=== PATIENT | male | born 1970 | race Caucasian/White ===

== ENCOUNTER 2016-12-12 18:06 | Emergency (ER) | payer MEDICARE, MEDICAID ==
[~2016-12-12] VITALS: Ht 167.6 cm; Wt 90.7 kg
--- NOTE | 2016-12-12 18:10 | NUR ---
Patient states he thinks he took about 800mg of trazadone and "maybe a few escitalopram" because he is having suicidal thoughts. He brought his medication bottles with him. i labeled it and am keeping it away from him, at the nurses station. he is on a can crimper. i called nursing fitting supervisor Bear for a sitter for constant observation.
[2016-12-12] MEDS ORDERED: CARV3.122 PO (18:32)
[2016-12-12] MEDS ORDERED: ATOR20TA PO (18:33)
[2016-12-12] MEDS ORDERED: PANT40TA4 PO (18:33)
[2016-12-12] MEDS ORDERED: ESCI20TA PO (18:34)
[2016-12-12] MEDS ORDERED: TRAZ-147 PO (18:34)
--- NOTE | 2016-12-12 18:58 | NUR ---
PT IS IN ROOM #2A UNDER DIRECT SUPERVISION OF ULISSES HORNE. PT IS RESTING IN BED COMFORTABLY , NO S/S OF ACUTE DISTRESS AT THIS TIME.
--- NOTE | 2016-12-12 19:00 | NUR ---
REPORT WAS GIVEN TO ULISSES ANDRADE.
--- NOTE | 2016-12-12 19:24 | NUR ---
sitter at bedside for constant observation. belongings away from patient
[2016-12-12 19:25] LABS: BASOPHILS # (AUTO) 0.1 K/uL (0.0-0.2); EOSINOPHILS % (AUTO) 0.7 % (0.0-7.0); HEMATOCRIT 41.9 % (40.0-50.0); LYMPHOCYTES # (AUTO) 1.9 K/uL (0.8-4.8); LYMPHOCYTES % (AUTO) 28.1 % (20.5-51.5); MEAN CORPUSCULAR HEMOGLOBIN 26.5 uug (27.0-31.0); MEAN CORPUSCULAR HGB CONC 34 g/dL (32.0-37.0); MONOCYTES # (AUTO) 0.7 K/uL (0.1-1.30); MONOCYTES % (AUTO) 10.4 % (0.0-11.0); NEUTROPHILS % (AUTO) 59.8 % (38.5-71.5); PLATELET COUNT (AUTO) 377 K/uL (150-450); RED BLOOD CELL COUNT(AUTO) 5.31 MIL/uL (4.70-6.10); RED CELL DISTRIBUTION WIDTH 21.3 % (11.5-14.5); WHITE BLOOD COUNT (AUTO) 6.7 K/uL (4.0-11.2)
--- NOTE | 2016-12-12 19:30 | NUR ---
Patient moved to room 4A for house convenience.
[2016-12-12 19:37] LABS: ALANINE AMINOTRANSFERASE 35 U/L (16-63); ALBUMIN 3.8 g/dL (3.4-5.0); ALKALINE PHOSPHATASE 108 U/L (50-136); ASPARTATE AMINOTRANSFERASE 33 U/L (15-37); BILIRUBIN,DIRECT 0.2 mg/dL (0.0-0.2); BILIRUBIN,TOTAL 0.9 mg/dL (0.2-1.0); CALCIUM 8.9 mg/dL (8.5-10.1); CHLORIDE 99 mmol/L (98-107); CREATININE 1.2 mg/dL (0.6-1.3); ETHANOL 100 MG/DL (0-0); GFR 65 mL/min (>60); GLUCOSE 100 mg/dL (74-106); POTASSIUM 3.7 mmol/L (3.5-5.1); SODIUM SERUM 137 mmol/L (136-145); TOTAL PROTEIN, SERUM 8.1 g/dL (6.4-8.2); UREA NITROGEN, BLOOD 16 mg/dL (7-18)
[2016-12-12 19:38] LABS: ACETAMINOPHEN < 2.0 ug/mL (10-30); CARBON DIOXIDE 20 mmol/L (21-32)
[2016-12-12 19:40] LABS: *BILIRUBIN,URIN NEGATIVE (NEGATIVE); *BLOOD, URINE NEGATIVE (NEGATIVE); *CLARITY,URINE CLEAR (CLEAR); *COLOR,URINE YELLOW (YELLOW); *KETONES,URINE NEGATIVE (NEGATIVE); *PROTEIN,URINE 1+ (NEGATIVE); *UROBILINOGEN,URINE 0.2 E.U./dl (NORMAL); LEUKOCYTE ESTERASE ,URINE NEGATIVE (NEGATIVE); NITRITE, URINE NEGATIVE (NEGATIVE); UGLUCOSE NEGATIVE (NEGATIVE)
[2016-12-12 19:54] LABS: *AMPHETAMINE, URINE NEGATIVE (NEGATIVE); *BARBITURATE, URINE NEGATIVE (NEGATIVE); *CANNABINOID, URINE NEGATIVE (NEGATIVE); *COCCAINE, URINE NEGATIVE (NEGATIVE); *OPIATE, URINE NEGATIVE (NEGATIVE); *PHENCYCLIDINE SCREEN,URINE NEGATIVE (NEGATIVE)
[2016-12-12 20:00] LABS: MUCUS,URINE MANY /LPF (0-FEW); SQUAMOUS EPITHELIAL CELL,UR FEW /HPF (NONE SEEN); WBC,URINE 0-3 /HPF (0-3)
[2016-12-12 20:01] LABS: ANISOCYTOSIS 2+
--- NOTE | 2016-12-12 20:01 | NUR ---
Call placed to [facility] for PET evaluation, ETA 40 min.
--- NOTE | 2016-12-12 21:27 | NUR ---
Juan Olive[facility] at bedside
--- NOTE | 2016-12-12 23:00 | NUR ---
Patient is resting comfortably in bed with eyes closed. 1:1 sitter at bedside for safety
--- NOTE | 2016-12-12 23:00 | NUR ---
Yael flaherty in [facility] - 12/13/16 at 0106 by ISELA Patient is resting comfortably in bed with eyes closed
--- NOTE | 2016-12-13 00:02 | NUR ---
Call placed to [facility] to check status. Psych intake at that location states that they did not receive any paperwork RE patient despite FAX CONFIRMATION AT [phone]. Information re-faxed.
--- NOTE | 2016-12-13 01:06 | NUR ---
Patient is resting comfortably in bed with eyes closed. 1:1 sitter at bedside for safety
--- NOTE | 2016-12-13 01:39 | NUR ---
Nursing Licensed Midwife contacted .[facility] to check status, facility unable to verify MEDICAL due to system maintenence.
--- NOTE | 2016-12-13 02:09 | NUR ---
Call received from [facility], patient accepted by Dr. Nichole. [facility] contacted for transportation, ETA 40 min.
--- NOTE | 2016-12-13 02:16 | NUR ---
SBAR report to Harjinder.
--- NOTE | 2016-12-13 02:40 | NUR ---
Patient discharged to [facility] in stable conditon via BLS AMBULANCE. Written and verbal after care instructions given. Patient verbalizes understanding of instructions.
== END 2016-12-13 02:41 | disposition home or self-care (01) ==
LOC: ER 18:06
DX: F32.9 Major depressive disorder, single episode, unspecified (principal); I10 Essential (primary) hypertension; K21.9 Gastro-esophageal reflux disease without esophagitis; E78.5 Hyperlipidemia, unspecified; F10.20 Alcohol dependence, uncomplicated
CPT/HCPCS: 36415; 71010; 80048; 80076; 80307; 81001; 85025; 93005; 99285; A4663; G0480; G0481; G0482; G6040-TC

== ENCOUNTER 2017-07-06 23:32 | Inpatient (IN) | payer MEDICARE, MEDICAID ==
[~2017-07-06] VITALS: Ht 170.2 cm; Wt 81.6 kg
[~2017-07-06 23:32] MED LIST: ATOR20TA PO; CARV3.122 PO; ESCI20TA PO; PANT40TA4 PO; TRAZ-147 PO
--- NOTE | 2017-07-06 23:58 | NUR ---
PATIENT WALKED INTO ER C/O SI WITH A PLAN TO OVERDOSE ON MEDICATION. PATIENT UPON ARRIVAL SLURRING SPEECH AT TIMES BUT DENIES DRINKING ETOH AND TAKING DRUGS. NO DISTRESS NOTED
[2017-07-07] MEDS ORDERED: ONDANSETRON 4 MG/2 ML VIAL IV ONE
[2017-07-07] MEDS ORDERED: ONDANSETRON 4 MG/2 ML VIAL ONE (00:16)
[2017-07-07 00:29] LABS: *BILIRUBIN,URIN NEGATIVE (NEGATIVE); *BLOOD, URINE Trace-intact (NEGATIVE); *CLARITY,URINE CLEAR (CLEAR); *COLOR,URINE YELLOW (YELLOW); *KETONES,URINE NEGATIVE (NEGATIVE); *PROTEIN,URINE NEGATIVE (NEGATIVE); *UROBILINOGEN,URINE 0.2 E.U./dl (NORMAL); LEUKOCYTE ESTERASE ,URINE NEGATIVE (NEGATIVE); NITRITE, URINE NEGATIVE (NEGATIVE); UGLUCOSE NEGATIVE (NEGATIVE)
[2017-07-07] MEDS ORDERED: IV NORMAL SALINE 1000 ML BAG IV ONE ×3 (00:30→01:00)
[2017-07-07 00:31] LABS: HEMOGLOBIN 14.1 G/DL (14.0-18.0)
[2017-07-07 00:39] LABS: ALKALINE PHOSPHATASE 91 U/L (50-136); ASPARTATE AMINOTRANSFERASE 24 U/L (15-37); BILIRUBIN,DIRECT 0.1 mg/dL (0.0-0.2); BILIRUBIN,TOTAL 0.9 mg/dL (0.2-1.0); CARBON DIOXIDE 17 mmol/L (21-32); CHLORIDE 101 mmol/L (98-107); GLUCOSE 112 mg/dL (74-106); LIPASE 98 U/L (73-393); TOTAL PROTEIN, SERUM 8.1 g/dL (6.4-8.2); UREA NITROGEN, BLOOD 6 mg/dL (7-18)
[2017-07-07 00:42] LABS: ACETAMINOPHEN < 2.0 ug/mL (10-30)
[2017-07-07 00:43] LABS: POTASSIUM 2.7 mmol/L (3.5-5.1)
[2017-07-07 00:44] LABS: ETHANOL 221 MG/DL (0-0); HEMATOCRIT 41.5 % (40-50); MEAN CORPUSCULAR HEMOGLOBIN 28.3 UUG (27.0-31.0); MEAN CORPUSCULAR HGB CONC 34 g/dL (32.0-37.0); MEAN CORPUSCULAR VOLUME 83.2 FL (82.0-92.0); PLATELET COUNT (AUTO) 303 K/UL (150-450); RED BLOOD CELL COUNT(AUTO) 4.98 MIL/UL (4.7-6.1)
[2017-07-07] MEDS ORDERED: POTASSIUM CHLORIDE 20 MEQ TAB.PRT.SR PO ONE ×2 (00:45→01:15)
[2017-07-07 00:46] LABS: *AMPHETAMINE, URINE NEGATIVE (NEGATIVE); *BARBITURATE, URINE NEGATIVE (NEGATIVE); *CANNABINOID, URINE NEGATIVE (NEGATIVE); *COCCAINE, URINE NEGATIVE (NEGATIVE); *OPIATE, URINE NEGATIVE (NEGATIVE); *PHENCYCLIDINE SCREEN,URINE NEGATIVE (NEGATIVE)
[2017-07-07 00:51] LABS: ALANINE AMINOTRANSFERASE 22 U/L (16-63)
--- NOTE | 2017-07-07 00:55 | NUR ---
TRANSFERED TO 2ND FLOOR TELE VIA WHEELCHAIR
[2017-07-07 00:59] LABS: BACTERIA,URINE NONE SEEN /HPF (NONE SEEN); SQUAMOUS EPITHELIAL CELL,UR FEW /HPF (NONE SEEN); WBC,URINE 0-3 /HPF (0-3)
--- NOTE | 2017-07-07 01:00 | NUR ---
PATIENT NOTMEDICALLY CLEARED TO BE EVAL BY EQUINE SCIENCE INSTRUCTOR
[2017-07-07] MEDS ORDERED: POTASSIUM CHLORIDE 20 MEQ TAB.PRT.SR ONE ×2 (01:01→02:08)
[2017-07-07 01:02] VITALS: BP 111/74
[2017-07-07] MEDS ORDERED: QUET400T PO (01:02)
--- NOTE | 2017-07-07 01:03 | NUR ---
DR REEDER WITH [facility] FOR ADMISSION TO THE [facility] FLOOR
[2017-07-07] MEDS ORDERED: IV NS 1000 ML 1,000 ML IV PRN (01:10)
[2017-07-07] MEDS ORDERED: ACETAMINOPHEN 325 MG TABLET PO PRN (01:15)
[2017-07-07] MEDS ORDERED: POTASSIUM CHLORIDE 50 ML IV ONE (01:15)
[2017-07-07] MEDS ORDERED: ONDANSETRON 4 MG/2 ML VIAL IV PRN (01:15)
[2017-07-07] MEDS ORDERED: MAGNESIUM HYDROXIDE 30 ML LIQUID UDC PO PRN (01:15)
[2017-07-07 01:28] LABS: EOSINOPHILS % (MANUAL) 2 % (0-8); LYMPHOCYTES % (MANUAL) 33 % (20-40); MONOCYTES % (MANUAL) 3 % (2-10); NEUTROPHILS % (MANUAL) 62 % (42-75)
[2017-07-07] MEDS ORDERED: LORAZEPAM 2 MG/1 ML VIAL IV PRN (01:30)
--- NOTE | 2017-07-07 02:00 | NUR ---
RECEIVED PATIENT VIA W/C FROM ER. PATIENT IS A/O X3. APPROPRIATE AND COOPERATIVE WHEN APPROACHED. PATIENT DENIES ANY THOUGHTS OR FEELINGS OF SUICIDE AT THIS TIME, BUT PATIENT DOES ADMIT HE IS VERY DEPRESSED AND WAS TOLD THAT WHEN HE FEELS DOWN OR HAS FEELINGS OF HARMING HIMSELF TO GO TO THE NEAREST ER, SO TONIGHT PATIENT WAS DROPPED OFF AT THE ER, BUT DENIES AT THIS TIME. IV H/L NOTED TO RIGHT AC #18 GAUGE. PLACED ON TELE ORDERED, SR. VSS. ORIENTED PATIENT TO ROOM AND CALL LIGHT. CALL LIGHT IN REACH. ALL NEEDS ATTENDED. WILL CONTINUE TO MONITOR.
--- NOTE | 2017-07-07 02:05 | NUR ---
SITTER AT BEDSIDE FOR SAFETY AND CLOSE OBSERVATION.
[2017-07-07 04:00] VITALS: BP 97/69
--- NOTE | 2017-07-07 05:59 | NUR ---
PATIENT AWAKE IN BED. ON TELE SR. DENIES ANY THOUGHTS OR FEELINGS OF SUICIDE. SITTER AT BEDSIDE FOR SAFETY. IVF INFUSING WELL. CALL LIGHT IN REACH. ALL NEEDS ATTENDED. WILL CONTINUE TO MONITOR.
[2017-07-07] MEDS: FAMOTIDINE. 20 MG/2 ML VIAL IV SCH (09:00)
[2017-07-07] MEDS: THIAMINE HCL 100 MG TABLET PO SCH (09:15)
[2017-07-07] MEDS: FOLIC ACID 1 MG TABLET PO SCH (09:15)
[2017-07-07] MEDS: MULTIVITAMINS,THERAPEUTIC TABLET PO SCH (09:15)
[2017-07-07] MEDS ORDERED: QUETIAPINE FUMARATE 200 MG TABLET PO SCH (09:45)
[2017-07-07] MEDS ORDERED: ESCITALOPRAM OXALATE 10 MG TABLET PO SCH (09:45)
[2017-07-07 09:51] LABS: EOSINOPHILS # (AUTO) 0.1 K/uL (0.0-0.7); LYMPHOCYTES # (AUTO) 2.2 K/uL (20.0-40.0)
[2017-07-07 10:07] LABS: BASOPHILS % (AUTO) 0.9 % (0.0-2.0); EOSINOPHILS % (AUTO) 2.4 % (0.0-7.0); HEMATOCRIT 35.1 % (36.7-47.1); HEMOGLOBIN 12.1 g/dL (12.5-16.3); LYMPHOCYTES % (AUTO) 45.9 % (20.5-51.5); MEAN CORPUSCULAR HEMOGLOBIN 29.2 uug (23.8-33.4); MEAN CORPUSCULAR HGB CONC 35 g/dL (32.5-36.3); MEAN CORPUSCULAR VOLUME 84.5 fL (73.0-96.2); MONOCYTES # (AUTO) 0.4 K/uL (2.0-10.0); MONOCYTES % (AUTO) 9.2 % (0.0-11.0); NEUTROPHILS % (AUTO) 41.6 % (38.5-71.5); PLATELET COUNT (AUTO) 237 K/uL (152-348); RED BLOOD CELL COUNT(AUTO) 4.16 MIL/uL (4.06-5.63)
[2017-07-07 10:08] LABS: WHITE BLOOD COUNT (AUTO) 4.8 K/uL (3.6-10.2)
[2017-07-07] MEDS ORDERED: MAG HYDROX/AL HYDROX/SIMETH 30 ML LIQUID UDC PO PRN (10:15)
[2017-07-07 11:58] VITALS: BP 111/66
[2017-07-07 12:08] LABS: POTASSIUM 3.6 mmol/L (3.5-5.1)
[2017-07-07 12:10] LABS: CREATININE 1.1 mg/dL (0.6-1.3)
[2017-07-07 12:11] LABS: BILIRUBIN,TOTAL 0.4 mg/dL (0.2-1.0); MAGNESIUM 1.8 mg/dL (1.8-2.4); PHOSPHOROUS 2.4 mg/dL (2.5-4.9); TOTAL PROTEIN, SERUM 6.6 g/dL (6.4-8.2)
[2017-07-07 12:12] LABS: THYROID STIMULATING HORMONE 2.781 mIU/mL (0.358-3.740)
[2017-07-07] MEDS ORDERED: NEUTRA PHOS PACKET PO ONE (14:00)
[2017-07-07 14:51] LABS: ABG BASE EXCESS -5.7 mmol/L; ABG PCO2 25.8 mmHg (35.0-45.0); ABG PH 7.437 (7.350-7.450); ABG PO2 93.9 mmHg (75.0-100.0); ABG SITE LEFT RADIAL; ABG TOTAL HEMOGLOBIN 12.4 G/dL (13.5-18.0); COHb 1.1 % (0.5-1.5); MetHb 0.3 % (0.0-1.5); O2Hb 96.4 % (94.0-97.0); VENT MODE RA
[2017-07-07 15:52] VITALS: BP 122/91
[2017-07-07] MEDS: HYDROCORTISONE 1% CREAM 30 GM TUBE TP SCH ×2 (16:19→23:47)
[2017-07-07] MEDS: FENOFIBRATE NANOCRYSTALLIZED 145 MG TABLET PO SCH (16:20)
[2017-07-07] MEDS ORDERED: TRAZODONE 100 MG TABLET PO SCH (18:00)
--- NOTE | 2017-07-07 19:30 | NUR ---
RECEIVED SHIFT REPORT FROM PREVIOUS SHIFT NURSE. PATIENT IS IN STABLE CONDITION, NO S/S OF DISTRESS. A/OX3, APPEARS COMFORTABLE LAYING IN BED WITH FLAT AFFECT AND ALSO APPEARS WITHDRAWN. SITTER AT BEDSIDE FOR SAFETY. PATIENT VERBALIZED THAT HE IS FEELING A LITTLE BETTER AND DENIES ANY SUICIDAL IDEATIONS AT THIS TIME. WILL CONTINUE TO MONITOR. BED IS IN LOCKED/LOW POSITION. SITTER INFORMED OF PATIENT'S CURRENT CONDITION/SITUATION. CALL LIGHT WITHIN REACH. SAFETY AND COMFORT WILL BE IMPLEMENTED THROUGHOUT SHIFT.
[2017-07-07 20:00] VITALS: BP 129/88
[2017-07-07] MEDS: LORAZEPAM 2 MG/1 ML VIAL IV PRN (20:40)
[2017-07-07] MEDS ORDERED: QUETIAPINE FUMARATE 100 MG TABLET ONE (22:21)
[2017-07-07] MEDS: QUETIAPINE FUMARATE 100 MG TABLET PO SCH (22:38)
[2017-07-07] MEDS: IV NS 1000 ML 1,000 ML IV PRN (23:56)
[2017-07-08] VITALS: BP 132/84
[2017-07-08 06:26] LABS: BASOPHILS % (AUTO) 0.6 % (0.0-2.0); EOSINOPHILS # (AUTO) 0.2 K/uL (0.0-0.7); EOSINOPHILS % (AUTO) 3.1 % (0.0-7.0); HEMATOCRIT 34.3 % (40-50); HEMOGLOBIN 11.4 G/DL (14.0-18.0); LYMPHOCYTES # (AUTO) 1.8 K/UL (0.8-4.8); LYMPHOCYTES % (AUTO) 30.3 % (20.5-51.5); MEAN CORPUSCULAR HEMOGLOBIN 28.2 UUG (27.0-31.0); MEAN CORPUSCULAR HGB CONC 33 g/dL (32.0-37.0); MONOCYTES # (AUTO) 0.4 K/UL (0.1-1.30); MONOCYTES % (AUTO) 6.7 % (0.0-11.0); NEUTROPHILS # (AUTO) 3.4 K/UL (1.8-8.9); NEUTROPHILS % (AUTO) 59.3 % (38.5-71.5); PLATELET COUNT (AUTO) 228 K/UL (150-450); RED BLOOD CELL COUNT(AUTO) 4.03 MIL/UL (4.7-6.1); WHITE BLOOD COUNT (AUTO) 5.8 K/UL (4.0-11.2)
[2017-07-08] MEDS: IV NS 1000 ML 1,000 ML IV PRN ×2 (06:26→19:09)
--- NOTE | 2017-07-08 06:35 | NUR ---
PATIENT SLEPT COMFORTABLY THROUGHOUT MOST OF THE NIGHT. SITTER PRESENT AT BEDSIDE. PATIENT IS IN STABLE, SAFE CONDITION, WITH NO S/S OF DISTRESS. NO SIGNS OF SUICIDAL IDEATIONS PRESENTED OR VERBALIZED BY PATIENT. DENIES SI. BED IN LOCKED/LOW POSITION, WITH SIDE RAILS UP X2. CALL LIGHT WITHIN REACH. COMFORT AND SAFETY WILL BE PROVIDED UNTIL SHIFT HAS COMPLETED.
[2017-07-08 06:45] LABS: BILIRUBIN,TOTAL 0.9 mg/dL (0.2-1.0); CREATININE 1.2 mg/dL (0.6-1.3); PHOSPHOROUS 3.5 mg/dL (2.5-4.9); POTASSIUM 3.4 mmol/L (3.5-5.1); TOTAL PROTEIN, SERUM 6.4 g/dL (6.4-8.2)
[2017-07-08 06:49] VITALS: BP 121/81
--- NOTE | 2017-07-08 06:57 | NUR ---
CRITICAL LAB VALUE CALLED IN BY PAOLO FROM LAB: MAGNESIUM 1.2. READ BACK COMPLETED. DR. GUZMAN CONTACTED AT 0702. WILL ENDORSE TO NURSE IN NEXT SHIFT.
[2017-07-08 06:59] LABS: MAGNESIUM 1.2 mg/dL (1.8-2.4)
--- NOTE | 2017-07-08 07:50 | NUR ---
Received patient asleep. Non-labored breathing. With sitter at bed-side
[2017-07-08 08:00] VITALS: BP 119/78
[2017-07-08] MEDS: FAMOTIDINE. 20 MG/2 ML VIAL IV SCH (08:47)
[2017-07-08] MEDS: MULTIVITAMINS,THERAPEUTIC TABLET PO SCH (08:47)
[2017-07-08] MEDS: FENOFIBRATE NANOCRYSTALLIZED 145 MG TABLET PO SCH (08:47)
[2017-07-08] MEDS: FOLIC ACID 1 MG TABLET PO SCH (08:47)
[2017-07-08] MEDS: FLUOXETINE HCL 20 MG CAPSULE PO SCH (08:47)
[2017-07-08] MEDS: THIAMINE HCL 100 MG TABLET PO SCH (08:47)
[2017-07-08] MEDS: HYDROCORTISONE 1% CREAM 30 GM TUBE TP SCH ×2 (08:49→21:07)
[2017-07-08] MEDS ORDERED: Medication Not On Formulary EA (Escitalopram Oxalate (Lexapro) 1 TAB) PO SCH (09:00)
[2017-07-08] MEDS ORDERED: ATORVASTATIN 20 MG TABLET PO SCH (09:00)
[2017-07-08] MEDS ORDERED: Medication Not On Formulary EA (Quetiapine Fumarate (Seroquel) 400 MG) PO SCH (09:00)
--- NOTE | 2017-07-08 10:12 | NUR ---
No new orders at this time. Awake, alert x4. With intact IV NS at 125 cc/hr infusing well. Tolerated breakfast well. No complaints of discomfort. Not in apparent distress
[2017-07-08] MEDS ORDERED: POTASSIUM CHLORIDE 20 MEQ TAB.PRT.SR PO ONE (10:15)
[2017-07-08] MEDS: MAGNESIUM SULFATE/D5W 100 ML IV SCH ×3 (10:33→13:44)
--- NOTE | 2017-07-08 12:09 | NUR ---
Magnesium on second bag. To complete three bags. Patient still verbalizes of suicidal ideation. Sitter at bedside
--- NOTE | 2017-07-08 12:45 | NUR ---
Leaking in IV site noted. Re-inserted IV on right hand G22. Patent and infusing well. Magnesium resumed infusing
[2017-07-08 16:37] VITALS: BP 116/77
--- NOTE | 2017-07-08 17:46 | NUR ---
Patient awake, alert. No verbalization of suicidal ideation this afternoon. Still with sitter at bedside. No complaints of pain or discomfort at this time.
[2017-07-08 20:00] VITALS: BP 129/76
[2017-07-08] MEDS: QUETIAPINE FUMARATE 100 MG TABLET PO SCH (20:11)
[2017-07-08] MEDS: LORAZEPAM 2 MG/1 ML VIAL IV PRN (20:22)
--- NOTE | 2017-07-08 21:46 | NUR ---
Received patient in room awake but anxious, no SOB denies chest pain. Verbally responsive, requesting early dose of Ativan. 1:1 sitter in room for patient's safety. Needs provided. Safety observed.
[2017-07-09] MEDS: IV NS 1000 ML 1,000 ML IV PRN ×3 (03:11→18:47)
[2017-07-09 04:58] VITALS: BP 127/89
[2017-07-09 06:48] LABS: BASOPHILS % (AUTO) 0.4 % (0.0-2.0); EOSINOPHILS # (AUTO) 0.2 K/uL (0.0-0.7); EOSINOPHILS % (AUTO) 3.1 % (0.0-7.0); HEMATOCRIT 34.2 % (40-50); HEMOGLOBIN 11.6 G/DL (14.0-18.0); LYMPHOCYTES # (AUTO) 1.9 K/UL (0.8-4.8); LYMPHOCYTES % (AUTO) 31.7 % (20.5-51.5); MEAN CORPUSCULAR HGB CONC 34 g/dL (32.0-37.0); MEAN CORPUSCULAR VOLUME 85.1 FL (82.0-92.0); MONOCYTES # (AUTO) 0.5 K/UL (0.1-1.30); MONOCYTES % (AUTO) 7.5 % (0.0-11.0); NEUTROPHILS # (AUTO) 3.5 K/UL (1.8-8.9); NEUTROPHILS % (AUTO) 57.3 % (38.5-71.5); PLATELET COUNT (AUTO) 218 K/UL (150-450); RED BLOOD CELL COUNT(AUTO) 4.02 MIL/UL (4.7-6.1); WHITE BLOOD COUNT (AUTO) 6.1 K/UL (4.0-11.2)
--- NOTE | 2017-07-09 07:01 | NUR ---
No acute distress. 1:1 sitter in room
[2017-07-09 07:07] LABS: BILIRUBIN,TOTAL 0.6 mg/dL (0.2-1.0); MAGNESIUM 1.9 mg/dL (1.8-2.4); POTASSIUM 3.7 mmol/L (3.5-5.1); TOTAL PROTEIN, SERUM 6.5 g/dL (6.4-8.2)
[2017-07-09 07:53] VITALS: BP 137/93
[2017-07-09] MEDS: FENOFIBRATE NANOCRYSTALLIZED 145 MG TABLET PO SCH (08:19)
[2017-07-09] MEDS: FOLIC ACID 1 MG TABLET PO SCH (08:20)
[2017-07-09] MEDS: FAMOTIDINE 20 MG TABLET PO SCH (08:20)
[2017-07-09] MEDS: THIAMINE HCL 100 MG TABLET PO SCH (08:20)
[2017-07-09] MEDS: MULTIVITAMINS,THERAPEUTIC TABLET PO SCH (08:20)
[2017-07-09] MEDS: FLUOXETINE HCL 20 MG CAPSULE PO SCH (08:20)
[2017-07-09] MEDS: LORAZEPAM 2 MG/1 ML VIAL IV PRN ×3 (08:21→21:18)
[2017-07-09] MEDS: HYDROCORTISONE 1% CREAM 30 GM TUBE TP SCH ×2 (08:22→20:44)
--- NOTE | 2017-07-09 09:43 | NUR ---
Received patient asleep. Non-labored breathing. With sitter at bedside. With ongoing IV of NS at 125cc/HR infusing well. Will continue to monitor.
[2017-07-09 12:00] VITALS: BP 126/87
[2017-07-09 16:00] VITALS: BP 123/83
--- NOTE | 2017-07-09 17:21 | NUR ---
Patient anxious Ativan PRN given.
--- NOTE | 2017-07-09 17:53 | NUR ---
Patient more calm. Tolerated dinner well. resting in bed, no discomfort at this time. Patient claims he feels better now. Still with sitter at bedside.
[2017-07-09 19:00] VITALS: BP 137/92
[2017-07-09] MEDS: QUETIAPINE FUMARATE 100 MG TABLET PO SCH (20:44)
[2017-07-09 21:24] LABS: *OCCULT BLOOD STOOL NEGATIVE (NEGATIVE)
[2017-07-10] MEDS: IV NS 1000 ML 1,000 ML IV PRN (03:34)
[2017-07-10 05:20] VITALS: BP 126/67
--- NOTE | 2017-07-10 06:50 | NUR ---
END OF SHIFT NOTES. PT SLEPT INTERMITTENTLY THROUGHOUT SHIFT. IN STABLE CONDITION. CONFUSED DURING THE NIGHT, NEEDS FREQUENT REORIENTATION TO TIME AND PLACE. IV PULLED OUT. IVF HELD. PT CONT TO HAVE THOUGHTS OF SUICIDE. STATES sI IS ON AND OFF THROUGHOUT SHIFT. VERBALIZES RELIEF WITH ATIVAN. 1:1 SITTER REMAINS AT BEDSIDE. ALL NEEDS ATTENDED. SAFETY MAINTAINED. CALL LIGHT WITHIN REACH.
[2017-07-10 07:30] VITALS: BP 110/71
[2017-07-10] MEDS: FENOFIBRATE NANOCRYSTALLIZED 145 MG TABLET PO SCH (08:23)
[2017-07-10] MEDS: FLUOXETINE HCL 20 MG CAPSULE PO SCH (08:23)
[2017-07-10] MEDS: THIAMINE HCL 100 MG TABLET PO SCH (08:23)
[2017-07-10] MEDS: FAMOTIDINE 20 MG TABLET PO SCH (08:23)
[2017-07-10] MEDS: FOLIC ACID 1 MG TABLET PO SCH (08:23)
[2017-07-10] MEDS: MULTIVITAMINS,THERAPEUTIC TABLET PO SCH (08:23)
[2017-07-10] MEDS: HYDROCORTISONE 1% CREAM 30 GM TUBE TP SCH ×2 (09:03→21:46)
[2017-07-10] MEDS: LORAZEPAM 2 MG/1 ML VIAL IV PRN ×2 (09:30→21:46)
[2017-07-10 11:28] VITALS: BP 107/65
[2017-07-10] MEDS: METRONIDAZOLE 500 MG TABLET PO SCH ×2 (12:10→16:07)
[2017-07-10 15:19] VITALS: BP 122/75
--- NOTE | 2017-07-10 19:30 | NUR ---
RECEIVED SHIFT REPORT FROM PREVIOUS SHIFT NURSE. PATIENT IS A/O X4. 1:1 SITTER AT BEDSIDE. PATIENT IS SAFE, DENIES ANY SI. PATIENT APPEARS TO BE IN A GOOD MOOD AND VERBALIZES THAT HE FEELS BETTER. BED IN LOCKED/LOW POSITION WITH SIDE RAILS UP X2. SAFETY AND COMFORT WILL BE PROVIDED THROUGHOUT SHIFT.
[2017-07-10 20:17] VITALS: BP 127/76
[2017-07-10] MEDS: QUETIAPINE FUMARATE 100 MG TABLET PO SCH (20:45)
[2017-07-11] MEDS: LORAZEPAM 2 MG/1 ML VIAL IV PRN (03:49)
[2017-07-11 06:12] VITALS: BP 123/83
--- NOTE | 2017-07-11 06:47 | NUR ---
Patient slept intermittently through the night due to nightmares he verbalized he had. Patient denies hurting himself or hurting others. 1:1 sitter at bedside monitoring patient. Patient is safe. Bed in locked/low position with side rails up x2. Safety and comfort will be provided for patient until end of shift.
--- NOTE | 2017-07-11 07:45 | NUR ---
pt received in bed awake.sitter at bed side for safety ,v/s are stable.
[2017-07-11] MEDS: FAMOTIDINE 20 MG TABLET PO SCH (08:01)
[2017-07-11] MEDS: FENOFIBRATE NANOCRYSTALLIZED 145 MG TABLET PO SCH (08:01)
[2017-07-11] MEDS: MULTIVITAMINS,THERAPEUTIC TABLET PO SCH (08:01)
[2017-07-11] MEDS: QUETIAPINE FUMARATE 100 MG TABLET PO SCH ×2 (08:01→20:35)
[2017-07-11] MEDS: FLUOXETINE HCL 20 MG CAPSULE PO SCH (08:01)
[2017-07-11] MEDS: THIAMINE HCL 100 MG TABLET PO SCH (08:01)
[2017-07-11] MEDS: FOLIC ACID 1 MG TABLET PO SCH (08:01)
[2017-07-11] MEDS: METRONIDAZOLE 500 MG TABLET PO SCH ×3 (08:01→16:03)
[2017-07-11] MEDS: HYDROCORTISONE 1% CREAM 30 GM TUBE TP SCH ×2 (08:02→20:35)
[2017-07-11 14:13] VITALS: BP 116/72
[2017-07-11 20:00] VITALS: BP 126/89
--- NOTE | 2017-07-11 20:00 | NUR ---
RECEIVED PATIENT AWAKE IN BED WITH SITTER AT BEDSIDE. PATIENT IS A/O X3. DENIES PAIN. DENIES ANY THOUGHTS OR FEELINGS OF SUICIDE IDEATION. NO RESP. DISTRESS NOTED. VS WNL. CALL LIGHT IN REACH. ALL NEEDS ATTENDED. WILL CONTINUE TO MONITOR.
--- NOTE | 2017-07-11 21:00 | NUR ---
DR. BARNEY AT BEDSIDE TO SEE PATIENT AND ALSO WROTE ORDER TO CLEAR PATIENT "FOR DISCHARGE" FROM HIS STANDPOINT. RX WRITTEN AND PLACED IN CHART. RX TO BE GIVEN TO PATIENT ONLY IF PATIENT IS DISCHARGED HOME. WELFARE CASE WORKER NOTIFIED. ALL NEEDS ATTENDED. WILL CONTINUE TO MONITOR AND ASSESS.
--- NOTE | 2017-07-12 06:51 | NUR ---
PATIENT ASLEEP IN BED. SITTER AT BEDSIDE. SLEPT WELL THROUGHOUT THE NIGHT, ALL NEEDS ATTENDED. WILL CONTINUE TO MONITOR.
[2017-07-12 07:07] VITALS: BP 119/72
--- NOTE | 2017-07-12 07:30 | NUR ---
RECEIVED REPORT FROM ENFORCEMENT OFFICER NURSE, BED IN LOW POSITION, SIDE RAILS UP X2. SITTER AT BEDSIDE.
[2017-07-12] MEDS: FLUOXETINE HCL 20 MG CAPSULE PO SCH (08:31)
[2017-07-12] MEDS: METRONIDAZOLE 500 MG TABLET PO SCH ×2 (08:31→13:41)
[2017-07-12] MEDS: MULTIVITAMINS,THERAPEUTIC TABLET PO SCH (08:31)
[2017-07-12] MEDS: FAMOTIDINE 20 MG TABLET PO SCH (08:31)
[2017-07-12] MEDS: FOLIC ACID 1 MG TABLET PO SCH (08:31)
[2017-07-12] MEDS: THIAMINE HCL 100 MG TABLET PO SCH (08:31)
[2017-07-12] MEDS: HYDROCORTISONE 1% CREAM 30 GM TUBE TP SCH (08:31)
[2017-07-12] MEDS: QUETIAPINE FUMARATE 100 MG TABLET PO SCH (08:31)
[2017-07-12] MEDS: FENOFIBRATE NANOCRYSTALLIZED 145 MG TABLET PO SCH (08:31)
[2017-07-12 10:15] VITALS: BP 126/95
--- NOTE | 2017-07-12 14:40 | NUR ---
REPORT WAS CALLED TO [facility], ALL BELONGINGS ACCOUNTED FOR, AND DISCHARGE PAPERWORK REVIEWED. PATIENT WAS LOADED ONTO [facility] AND DISCHARGED WITH [facility].
== END 2017-07-12 14:30 | DRG 372 ==
LOC: ER 23:33 → TELE 07-07 01:46 → MED 07-08 13:55
PROVIDERS: ADMIT Nurse Practitioner Acute Care; ATTEND Internal Medicine
DX: A04.72 Enterocolitis due to Clostridium difficile, not specified as recurrent (principal); E87.2 Acidosis; E83.39 Other disorders of phosphorus metabolism; R45.851 Suicidal ideations; F10.239 Alcohol dependence with withdrawal, unspecified; K21.9 Gastro-esophageal reflux disease without esophagitis; E83.42 Hypomagnesemia; E83.51 Hypocalcemia; E86.0 Dehydration; D64.9 Anemia, unspecified; E78.5 Hyperlipidemia, unspecified; E87.6 Hypokalemia; E88.09 Other disorders of plasma-protein metabolism, not elsewhere classified; F43.10 Post-traumatic stress disorder, unspecified; Z98.1 Arthrodesis status; Z87.891 Personal history of nicotine dependence; I10 Essential (primary) hypertension; R73.9 Hyperglycemia, unspecified; R21 Rash and other nonspecific skin eruption; Z91.5 Personal history of self-harm; F41.9 Anxiety disorder, unspecified; R00.0 Tachycardia, unspecified; F25.1 Schizoaffective disorder, depressive type; Z79.899 Other long term (current) drug therapy
CPT/HCPCS: 36415; 36600; 70030-TC; 71010; 80307; 83690; 83735; 84100; 84443; 85025; 85730; 86625; 87046; 87177; 89055; 93005; 93307; A4663; G0480; G0480-TC; J2060; J2405; J3475; J3490; J7030